=== PATIENT | female | born 1985 ===

== ENCOUNTER 2023-06-09 12:13 | Emergency (ER) | payer SELFPAY | END 2023-06-09 15:17 | disposition left against medical advice (07) | LOC: DL.ED 12:13 | DX: Z53.21 Procedure and treatment not carried out due to patient leaving prior to being seen by health care provider (principal) ==

== ENCOUNTER 2023-09-15 11:12 | Emergency (ER) | payer SELFPAY ==
[2023-09-15] MEDS: Lidocaine 2% with EPINEPHrine 1:200,000 20 ML SDV INJECT ONE (11:49)
[2023-09-15] MEDS: Acetaminophen 500 MG Tab PO ONE (11:52)
[2023-09-15] MEDS: Ketorolac 30 MG/ML SDV IM ONE (11:52)
== END 2023-09-15 12:00 | disposition home or self-care (01) ==
LOC: DL.ED 11:12
DX: L02.31 Cutaneous abscess of buttock (principal)
CPT/HCPCS: 10060; 87070; 87077; 87186; 96372; 99283; A9270; J1885; J3490